=== PATIENT | male | born 1945 | race Caucasian/White ===

== ENCOUNTER 2020-07-15 02:13 | Emergency (ER) | payer MEDICARE, OTHER ==
--- NOTE | 2020-07-15 08:29 | CT ---
PRELIMINARY REPORT/[facility]/EMERGENCY AFTER HOURS PROCEDURE: EXAM: CT Cervical Spine Without Intravenous Contrast. CLINICAL HISTORY: Patient is a 75-year-old male intermediate resident on dialysis Tuesday Fr nichols for ESRD presenting status post fall. Patient states he was getting out of bed to urinate per hi s usual routine when he slipped on the concrete and slid down the edge of the bed towards the ground. Patient complains of mild headache TECHNIQUE: Axial computed tomography images of the cervical spine without intravenous contrast. Sagit gregor and coronal reformations performed. COMPARISON: None provided. FINDINGS: BONES: No findings of acute cervical spine fracture. DISCS / DEGENERATIVE CHANGES: Degenerative changes resulting in varying degrees of central canal and neural foraminal stenosis. SOFT TISSUES: No prevertebral soft tissue swelling. No apical pneumothorax. IMPRESSION: 1. No findings of acute cervical spine fracture. 2. Degenerative changes resulting in varying degrees of central canal and neural foraminal stenosis. ELECTRONICALLY SIGNED BY: Santiago Medrano MD Jul 15, 2020 3:08:41 AM UPHOLSTERY AUTO TRIMMER FINAL REPORT EMERGENT AFTER HOURS CT OF THE CERVICAL SPINE WITHOUT CONTRAST: FINDINGS/IMPRESSION: I agree with the findings and impression given in the preliminary report per [facility] physici [facility]. There are degenerative changes of the cervical spine without acute osseous abnormality. POS: JUDYA
--- NOTE | 2020-07-15 08:30 | CT ---
PRELIMINARY REPORT/[facility]/EMERGENCY AFTER HOURS PROCEDURE: EXAM: CT Head Without Intravenous Contrast. CLINICAL HISTORY: Patient is a 75-year-old male [facility] resident on dialysis Tuesday Fr nichols for ESRD presenting status post fall. Patient states he was getting out of bed to urinate per hi s usual routine when he slipped on the concrete and slid down the edge of the bed towards the ground. Patient complains of mild headache TECHNIQUE: Axial computed tomography images of the head/brain without intravenous contrast. COMPARISON: None provided. FINDINGS: BRAIN: No acute intraparenchymal hemorrhage. No mass lesion. No CT evidence for acute territorial inf arct. No midline shift or extra-axial collection. Diffuse cerebral atrophy. There are subcortical and deep white matter hypodensities which are nonspec ific but which statistically most likely reflect changes of chronic small vessel ischemic disease. ORBITS: The orbits are unremarkable. SINUSES AND MASTOIDS: Opacification of a posterior right ethmoid air cell and mucosal thickening in t he inferior right maxillary sinus. SOFT TISSUES: No significant facial or scalp soft tissue swelling evident. No radiopaque foreign body is seen. BONES: No acute skull fracture. IMPRESSION: 1. No evidence of acute intracranial abnormality. 2. Diffuse cerebral atrophy. 3. There are subcortical and deep white matter hypodensities which are nonspecific but which statisti nathan most likely reflect changes of chronic small vessel ischemic disease. ELECTRONICALLY SIGNED BY: Santiago Medrano MD Jul 15, 2020 3:05:48 AM SLATE CUTTER OPERATOR FINAL REPORT EMERGENT AFTER HOURS CT OF THE BRAIN WITHOUT CONTRAST: FINDINGS/IMPRESSION: I agree with the findings and impression given in the preliminary report per [facility] physici [facility]. Small-vessel ischemic disease without acute intracranial abnormality. POS: BOBY
== END 2020-07-15 04:50 ==
LOC: ERS 02:13
DX: S06.0X0A Concussion without loss of consciousness, initial encounter (principal); E11.9 Type 2 diabetes mellitus without complications; I10 Essential (primary) hypertension; E78.00 Pure hypercholesterolemia, unspecified; Z87.891 Personal history of nicotine dependence; Z79.899 Other long term (current) drug therapy; W01.10XA Fall on same level from slipping, tripping and stumbling with subsequent striking against unspecified object, initial encounter; Z20.828 Contact with and (suspected) exposure to other viral communicable diseases
CPT/HCPCS: 51701; 70450; 72125; 99284; C9803; U0003; U0005; 87635

== ENCOUNTER 2020-10-02 11:40 | Outpatient (CLI) | payer MEDICARE | END 2020-10-02 11:41 | disposition home or self-care (01) | LOC: BICULT 11:40 | PROVIDERS: ATTEND Internal Medicine Nephrology | DX: N18.6 End stage renal disease (principal) | CPT/HCPCS: 93970 ==

== ENCOUNTER 2020-10-30 14:45 | Outpatient (CLI) | payer MEDICARE ==
[2020-10-31 03:29] LABS: SARS-CoV-2 NAA Rapid Test Not Detected (NotDetected)
== END 2020-10-30 14:46 | disposition home or self-care (01) ==
LOC: LABBT 14:45
PROVIDERS: ATTEND Specialist
DX: Z01.818 Encounter for other preprocedural examination (principal); Z20.822 Contact with and (suspected) exposure to COVID-19; N18.6 End stage renal disease
CPT/HCPCS: U0003; U0005; 87635; U0002

== ENCOUNTER 2020-11-04 10:27 | Day surgery (SDC) | payer MEDICARE ==
[2020-10-31 15:20] VITALS: BMI 29.2
[2020-11-04] MEDS ORDERED: Ioversol 68 % 50 ML VIAL ONE (10:41)
[2020-11-04] MEDS ORDERED: Bupivacaine PF 0.5% 30 ML VIAL ONE (10:41)
[2020-11-04] MEDS ORDERED: Heparin 5,000 UNITS/ML VIAL ONE (10:41)
[2020-11-04] MEDS ORDERED: Protamine Sulfate 50 MG/5 ML VIAL ONE (10:41)
[2020-11-04] MEDS ORDERED: XYLOCAINE 2%-EPI 1:100,000 20 ML VIAL ONE (10:41)
[2020-11-04] MEDS ORDERED: Levofloxacin 500 mg/D5W 100 ml Premix Bag ONE (11:28)
[2020-11-04] MEDS ORDERED: Lidocaine 1% (PF) 30 ML VIAL ONE (11:37)
[2020-11-04] MEDS ORDERED: EPINEPHrine 1 MG/ML AMP ONE (11:37)
[2020-11-04] MEDS ORDERED: Fentanyl 100 MCG/2 ML VIAL ONE (11:37)
[2020-11-04 11:45] LABS: #Basophils 0.1 thou/uL (0.0-0.2); #Eosinphils 0.1 thou/uL (0.0-0.7); #Lymphocytes 3.3 thou/uL (1.20-3.40); #Monocytes 0.5 thou/uL (0.11-0.59); #Neutrophils 4.5 thou/uL (1.40-6.50); %Basophils 0.9 % (0.0-1.0); %Eosinophils 0.7 % (0.0-10.0); %Lymphocytes 38.7 % (21.0-51.0); %Monocytes 6.3 % (0.0-10.0); %Neutrophils 53.3 % (42.0-75.0); Hemoglobin 10.9 g/dL (14.0-18.0); Mean Corpuscular HGB CONC 33.1 g/dL (32.0-36.0); Mean Corpuscular Hemoglobin 31.5 pg (27.0-31.0); Mean Platelet Volume 6.9 fL (7.4-10.4); Platelet Count 165 thou/uL (130-400); RBC Distribution Width 14.9 % (11.5-14.5); Red Blood Cell (RBC) Count 3.46 mill/uL (4.70-6.10); White Blood Cell (WBC) Count 8.5 thou/uL (4.8-10.8)
[2020-11-04] MEDS ORDERED: PROPOFOL 20 ML ONE (11:59)
[2020-11-04] MEDS ORDERED: Bupivacaine HCl 0.5%/Epinephrine 1:200,000/PF 30 ml Vial ONE (12:00)
[2020-11-04 12:04] LABS: Anion Gap 14 mmol/L (10-20); BUN (Urea Nitrogen) 31 mg/dL (8.4-25.7); Calc. Creatinine Clearance 22 mL/min (70-130); Carbon Dioxide 28 mmol/L (23-31); Chloride 100 mmol/L (98-107); Glucose 139 mg/dL (83-110); Potassium 3.7 mmol/L (3.5-5.1); Sodium 138 mmol/L (136-145)
[2020-11-04] MEDS ORDERED: Propofol 1,000 MG/100 ML VIAL IV ONE (12:42)
[2020-11-04] MEDS ORDERED: Heparin 1,000 UNITS/ML VIAL ONE (14:22)
== END 2020-11-04 14:45 | disposition home or self-care (01) ==
LOC: SDC 10:27
PROVIDERS: ATTEND Specialist
PROC: 031B0ZF Bypass Right Radial Artery to Lower Arm Vein, Open Approach (ICD-10-PCS; principal; 2020-11-04)
DX: I12.0 Hypertensive chronic kidney disease with stage 5 chronic kidney disease or end stage renal disease (principal); E11.22 Type 2 diabetes mellitus with diabetic chronic kidney disease; N18.6 End stage renal disease; E78.2 Mixed hyperlipidemia; I45.9 Conduction disorder, unspecified; I69.351 Hemiplegia and hemiparesis following cerebral infarction affecting right dominant side; E66.9 Obesity, unspecified; Z68.29 Body mass index [BMI] 29.0-29.9, adult; Z86.16 Personal history of COVID-19; Z79.2 Long term (current) use of antibiotics; Z79.4 Long term (current) use of insulin; Z79.899 Other long term (current) drug therapy; Z88.0 Allergy status to penicillin; Z95.0 Presence of cardiac pacemaker; Z95.1 Presence of aortocoronary bypass graft; Z99.2 Dependence on renal dialysis
CPT/HCPCS: 36416; 80048; 85025; J0171; J1644; J1956; J2001; J2704; J2720; J3010; Q9967; S0020

== ENCOUNTER 2020-12-24 06:46 | Day surgery (SDC) | payer MEDICARE ==
[2020-12-23 12:28] VITALS: BMI 28.8
== END 2020-12-24 14:45 | disposition home or self-care (01) ==
LOC: SDC 06:46
PROVIDERS: ATTEND Specialist
PROC: 05SB0ZZ Reposition Right Basilic Vein, Open Approach (ICD-10-PCS; principal; 2020-12-24)
DX: I12.0 Hypertensive chronic kidney disease with stage 5 chronic kidney disease or end stage renal disease (principal); E11.22 Type 2 diabetes mellitus with diabetic chronic kidney disease; N18.6 End stage renal disease; E78.00 Pure hypercholesterolemia, unspecified; E78.1 Pure hyperglyceridemia; Z95.0 Presence of cardiac pacemaker; Z95.1 Presence of aortocoronary bypass graft; Z88.0 Allergy status to penicillin; Z86.16 Personal history of COVID-19; Z79.4 Long term (current) use of insulin; Z79.899 Other long term (current) drug therapy
CPT/HCPCS: 36416; 80048; 85025; J1644; J1956; J2250; J2405; J2704; J2720; J3010; S0020